=== PATIENT | female | born 1970 | race Hispanic/Latino ===

== ENCOUNTER 2018-07-13 17:41 | Emergency (ER) | payer SELFPAY ==
--- NOTE | 2018-07-13 17:46 | ED_ITS ---
HPI - SOB/Dyspnea <SHAHZAD Álvarez - Last Filed: 07/13/18 22:22> General Chief Complaint: Upper Respiratory Symptoms Stated Complaint: DIFFICULTY BREATHING Time Seen by Provider: 07/13/18 17:45 Source: patient Mode of arrival: ambulatory Limitations: no limitations History of Present Illness 48-year-old healthy female that is an everyday smoker here for complaint of having a cough nasal congestion and generalized malaise over the past several days. She reports she has had some feeling of having shortness of breath with exertion. She feels like she has had some heaviness on her chest as well. She denies any of her contacts being sick. She has had a cough that has been nonproductive. She is tolerating p.o. intake in fluids well. She does states she has had some chills. No known fevers. MD Complaint: shortness of breath and cough Related Data Allergies Allergy/AdvReac Type Severity Reaction Status Date / Time aspirin Allergy Verified 07/13/18 17:52 codeine Allergy Verified 07/13/18 17:52 Review of Systems <SHAHZAD Álvarez - Last Filed: 07/13/18 22:22> Constitutional Reports chills Eyes Denies change in vision, Denies eye discharge, Denies irritation and Denies loss of vision ENT Ears, Nose, Mouth, and Throat: Denies change in voice, Reports nasal congestion, Denies neck pain, Denies sore throat and Denies throat swelling Cardiovascular Denies chest pain, Denies irregular heart rhythm, Denies lightheadedness, Denies palpitations and Denies orthopnea Respiratory Reports cough and Denies wheezing Gastrointestinal Gastrointestinal: Denies abdominal pain, Denies change in bowel habits, Denies diarrhea, Denies nausea and Denies vomiting Genitourinary Denies hematuria, Denies flank pain, Denies urinary incontinence and Denies urinary urgency Musculoskeletal Denies neck pain Integumentary/Breasts Denies pruritus, Denies erythema, Denies rash and Denies wounds Neurologic Denies confusion and Denies loss of vision Psychiatric Denies anxiety, Denies confusion, Denies depression, Denies homicidal ideation and Denies suicidal ideation Endocrine Denies palpitations Allergic/Immunologic Denies urticaria, Denies throat swelling and Denies wheezing PFSH <SHAHZAD Álvarez - Last Filed: 07/13/18 22:22> Social History Smoking Status: Current every day smoker Social History Smoking Status: Current every day smoker Exam <SHAHZAD Álvarez - Last Filed: 07/13/18 22:22> Initial Vital Signs Initial Vital Signs: Vital Signs Temperature 97.8 F 07/13/18 17:48 Pulse Rate 94 H 07/13/18 17:48 Respiratory Rate 15 07/13/18 17:48 Blood Pressure 118/83 07/13/18 17:48 Pulse Oximetry 97 07/13/18 17:48 Const General: cooperative and well developed Nutritional Appearance: well nourished Orientation: alert, awake, oriented x3 and not confused HENMT Mouth: oral mucosae normal and moist mucous membranes Throat: posterior oropharynx normal Eyes Conjunctivae: conjunctivae normal Sclera: sclerae normal Pupils: PERRL EOM: EOM intact bilaterally Resp Effort & Inspection: normal respiratory effort, able to speak in complete sentences, no respiratory distress and no use of accessory muscles Auscultation: clear to auscultation bilaterally, no rales, no rhonchi and no wheezes Cardio Rate: regular rate Rhythm: regular rhythm Heart Sounds: no click, no gallops, no murmurs and no rubs Pulses: normal peripheral pulses Skin General: no rashes or lesions noted, No jaundice and No petechiae Neuro General: alert, oriented x3, gait normal and no focal motor deficits Speech: speech normal <Charla Camp MD - Last Filed: 07/14/18 02:32> Initial Vital Signs Initial Vital Signs: Vital Signs Temperature 97.8 F 07/13/18 17:48 Pulse Rate 94 H 07/13/18 17:48 Respiratory Rate 15 07/13/18 17:48 Blood Pressure 118/83 07/13/18 17:48 Pulse Oximetry 97 07/13/18 17:48 Course <SHAHZAD Álvarez - Last Filed: 07/13/18 22:22> Orders Ordered: ED Orders 07/13/18 17:50 FLU A and B [Influenza A and B by PCR Rapid] Stat 07/13/18 17:53 EKG-12 Lead Stat 07/13/18 18:22 XR chest 1V Stat 07/13/18 18:40 Complete Blood Count AUTO DIFF Stat Comprehensive Metabolic Panel Stat Troponin I Stat Vital Signs - 8 hr 07/13/18 18:52 07/13/18 20:12 Temperature 98.0 F Pulse Rate 79 84 Respiratory Rate 18 17 Blood Pressure [Right Arm] 110/75 110/78 Pulse Oximetry 97 97 <Charla Camp MD - Last Filed: 07/14/18 02:32> Orders Ordered: ED Orders 07/13/18 17:50 FLU A and B [Influenza A and B by PCR Rapid] Stat 07/13/18 17:53 EKG-12 Lead Stat 07/13/18 18:22 XR chest 1V Stat 07/13/18 18:40 Complete Blood Count AUTO DIFF Stat Comprehensive Metabolic Panel Stat Troponin I Stat Vital Signs - 8 hr 07/13/18 18:52 07/13/18 20:12 Temperature 98.0 F Pulse Rate 79 84 Respiratory Rate 18 17 Blood Pressure [Right Arm] 110/75 110/78 Pulse Oximetry 97 97 MDM - SOB/Dyspnea <SHAHZAD Álvarez - Last Filed: 07/13/18 22:22> Lab Data Result diagrams: 07/13/18 18:40 07/13/18 18:40 Lab Results 07/13/18 07/13/18 07/13/18 Range/Units 17:50 18:40 18:40 WBC 6.4 (4.5-11.0) X10^3/uL RBC 4.56 (4.0-5.2) X10^6/uL Hgb 14.4 (12.0-16.0) g/dL Hct 42.3 (36-46) % MCV 92.6 (80-100) fL MCH 31.5 (26-34) PG MCHC 34.0 (30-36) % RDW 13.4 (11.6-14.8) % Plt Count 397 (150-400) X10^3/uL Neut % (Auto) 63.5 (50-75) % Lymph % (Auto) 25.8 (25-40) % Becker % (Auto) 8.9 (3-14) % Eos % (Auto) 1.4 L (2-4) % Baso % (Auto) 0.4 (0-2) % Neut # (Auto) 4100 (1938-9013) /uL Lymph # (Auto) 1700 (4695-5356) /uL Becker # (Auto) 600 (0-900) /uL Eos # (Auto) 100 (0-450) /uL Baso # (Auto) 0 (0-100) /uL Sodium 140 (137-145) mmol/L Potassium 3.8 (3.4-5.1) mmol/L Chloride 103 (98-107) mmol/L Carbon Dioxide 27 (22-32) mmol/L BUN 11 (7-17) mg/dL Creatinine 0.70 (0.52-1.04) mg/dL Estimated GFR > 60.0 (>60) mL/min BUN/Creatinine Ratio 15.7 (6-22) Glucose 95 (70-100) mg/dL Calcium 9.2 (8.4-10.2) mg/dL Total Bilirubin 0.6 (0.2-1.3) mg/dL AST 36 (14-36) IU/L ALT 46 (9-52) IU/L Alkaline Phosphatase 77 (38-126) U/L Troponin I < 0.012 (0.01-0.034) ng/mL Total Protein 8.0 (6.3-8.2) g/dL Albumin 4.3 (3.5-5.0) g/dL Globulin 3.7 (1.7-4.1) g/dL Albumin/Globulin Ratio 1.2 (1.0-2.8) Influenza A & B (PCR) Positive, type a A (Negative) Imaging Data Chest x-ray: Radiologist's impression: [address] [address] XRay Report Signed Patient: Wendie Garay [facility]#: [id number] : 1970Acct:[id number] Age/Sex: 48 / FDate of Service: 07/13/18 Loc: ED Accession Number: [id number] Procedure: XR chest 1V Ordering Provider: Dank Wall PROCEDURE: XR CHEST 1V INDICATIONS: Heaviness in the chest TECHNIQUE: One view of the chest was acquired. COMPARISON: None. FINDINGS: Surgical changes and devices: None. Lungs and pleura: Lungs are clear. No pleural effusions or pneumothorax. Mediastinum: Mediastinal contours appear normal. Heart size is normal. Bones and chest wall: No suspicious bony lesions. Overlying soft tissues appear unremarkable. IMPRESSION: No acute cardiopulmonary disease process. Dictated by: Chaya Day MD, PhD on 07/13/2018 at 19:44 Approved by: Chaya Day MD, PhD on 07/13/2018 at 19:45 ECG Data Interpretation: EKG shows sinus rhythm with no ST elevation or depression. No ectopy. Ventricular rate of 69. Pr interval 151. QRS duration of 88. QTC of 407. MDM Narrative Medical decision making narrative: Influenza swab was obtained was positive. EKG was obtained and shows sinus rhythm with no ST elevation or depression. No ectopy. Chest x-ray was obtained was unremarkable. CBC and Chem panel were obtained were unremarkable. Cardiac enzymes were negative. Plenty of fluids and rest. Tylenol Motrin as needed for discomfort or fever. Saline irrigation hot showers to help with any nasal congestion. For any worsening symptoms return emergency room. <Charla Camp MD - Last Filed: 07/14/18 02:32> Lab Data Lab Results 07/13/18 07/13/18 07/13/18 Range/Units 17:50 18:40 18:40 WBC 6.4 (4.5-11.0) X10^3/uL RBC 4.56 (4.0-5.2) X10^6/uL Hgb 14.4 (12.0-16.0) g/dL Hct 42.3 (36-46) % MCV 92.6 (80-100) fL MCH 31.5 (26-34) PG MCHC 34.0 (30-36) % RDW 13.4 (11.6-14.8) % Plt Count 397 (150-400) X10^3/uL Neut % (Auto) 63.5 (50-75) % Lymph % (Auto) 25.8 (25-40) % Becker % (Auto) 8.9 (3-14) % Eos % (Auto) 1.4 L (2-4) % Baso % (Auto) 0.4 (0-2) % Neut # (Auto) 4100 (2003-1992) /uL Lymph # (Auto) 1700 (0889-7507) /uL Becker # (Auto) 600 (0-900) /uL Eos # (Auto) 100 (0-450) /uL Baso # (Auto) 0 (0-100) /uL Sodium 140 (137-145) mmol/L Potassium 3.8 (3.4-5.1) mmol/L Chloride 103 (98-107) mmol/L Carbon Dioxide 27 (22-32) mmol/L BUN 11 (7-17) mg/dL Creatinine 0.70 (0.52-1.04) mg/dL Estimated GFR > 60.0 (>60) mL/min BUN/Creatinine Ratio 15.7 (6-22) Glucose 95 (70-100) mg/dL Calcium 9.2 (8.4-10.2) mg/dL Total Bilirubin 0.6 (0.2-1.3) mg/dL AST 36 (14-36) IU/L ALT 46 (9-52) IU/L Alkaline Phosphatase 77 (38-126) U/L Troponin I < 0.012 (0.01-0.034) ng/mL Total Protein 8.0 (6.3-8.2) g/dL Albumin 4.3 (3.5-5.0) g/dL Globulin 3.7 (1.7-4.1) g/dL Albumin/Globulin Ratio 1.2 (1.0-2.8) Influenza A & B (PCR) Positive, type a A (Negative) Discharge Plan Departure Patient Disposition: Home Clinical Impression: Influenza Discharge Date/Time: 07/13/18 20:00 Interventions: ED Discharge Assessment Last Done: 07/13/18 20:00 Instructions: DI for Influenza -- Adult Activity Restrictions/Additional Instructions: EKG chest x-ray and laboratory results with exception of positive influenza were unremarkable. Supportive care with plenty of fluids and rest. [id number] Tylenol or Motrin as needed for any discomfort or fever. Saline irrigation and nasal passages not shows help with the congestion. Follow up with her primary care provider. Return emergency room for any worsening symptoms Referrals: [facility] [Provider Group] Stand Alone Forms: Work Release Note, Work/School Release
[2018-07-13 17:48] VITALS: BP 118/83; PULSE 94; RESP 15; TEMP 36.6; O2SAT 97; BMI 26.4
--- NOTE | 2018-07-13 18:22 | DI.RAD.S_ITS ---
PROCEDURE: XR CHEST 1V INDICATIONS: Heaviness in the chest TECHNIQUE: One view of the chest was acquired. COMPARISON: None. FINDINGS: Surgical changes and devices: None. Lungs and pleura: Lungs are clear. No pleural effusions or pneumothorax. Mediastinum: Mediastinal contours appear normal. Heart size is normal. Bones and chest wall: No suspicious bony lesions. Overlying soft tissues appear unremarkable. IMPRESSION: No acute cardiopulmonary disease process. Dictated by: Chaya Day MD, PhD on 07/13/2018 at 19:44 Approved by: Chaya Day MD, PhD on 07/13/2018 at 19:45
[2018-07-13 18:46] LABS: Add Manual Diff / Slide Review NO; Basophils Absolute Auto 0 /uL (0-100); Basophils Percent Auto 0.4 % (0-2); Eosinophils Absolute Auto 100 /uL (0-450); Eosinophils Percent Auto 1.4 % (2-4); Hematocrit 42.3 % (36-46); Hemoglobin 14.4 g/dL (12.0-16.0); Lymphocytes Absolute Auto 1700 /uL (1100-4500); Lymphocytes Percent Auto 25.8 % (25-40); Mean Corpuscular Hemoglobin 31.5 PG (26-34); Mean Corpuscular Volume 92.6 fL (80-100); Monocytes Absolute Auto 600 /uL (0-900); Monocytes Percent Auto 8.9 % (3-14); Neutrophils Absolute Auto 4100 /uL (1500-7000); Neutrophils Percent Auto 63.5 % (50-75); Platelet Count 397 X10^3/uL (150-400); Red Blood Cell Count 4.56 X10^6/uL (4.0-5.2); Red Cell Distribution Width 13.4 % (11.6-14.8); White Blood Cell Count 6.4 X10^3/uL (4.5-11.0)
[2018-07-13 18:52] VITALS: BP 110/75; PULSE 79; RESP 18; O2SAT 97
[2018-07-13 18:57] LABS: Alanine Aminotransferase 46 IU/L (9-52); Albumin 4.3 g/dL (3.5-5.0); Albumin Globulin Ratio 1.2 (1.0-2.8); Alkaline Phosphatase 77 U/L (38-126); Aspartate Aminotransferase 36 IU/L (14-36); BUN Creatinine Ratio 15.7 (6-22); Bilirubin Total 0.6 mg/dL (0.2-1.3); Blood Urea Nitrogen 11 mg/dL (7-17); Calcium 9.2 mg/dL (8.4-10.2); Carbon Dioxide 27 mmol/L (22-32); Chloride 103 mmol/L (98-107); Estimated Glomerular Filt Rate > 60.0 mL/min (>60); Globulin 3.7 g/dL (1.7-4.1); Glucose 95 mg/dL (70-100); HEMOLYSIS < 15 (0-50); Potassium 3.8 mmol/L (3.4-5.1); Sodium 140 mmol/L (137-145)
[2018-07-13 19:09] LABS: Troponin I < 0.012 ng/mL (0.01-0.034)
[2018-07-13 20:12] VITALS: BP 110/78; PULSE 84; RESP 17; TEMP 36.7; O2SAT 97
== END 2018-07-13 20:00 | disposition home or self-care (01) ==
PROVIDERS: Emergency Provider Nurse Practitioner Family
DX: J11.1 Influenza due to unidentified influenza virus with other respiratory manifestations (principal)
CPT/HCPCS: 71045; 80053; 84484; 85025; 87400; 93005; 99283; 99285